=== PATIENT | female | born 1975 | race Caucasian/White ===

== ENCOUNTER 2019-01-01 08:11 | Emergency (ER) | payer MEDICAID, SELFPAY ==
[2019-01-01] MEDS ORDERED: Tetracaine 0.5% OPHTH SOLN/PF 4 ML BOT ONE (08:43)
[2019-01-01] MEDS ORDERED: Fluorescein Opthalmic Strip ONE (08:44)
== END 2019-01-01 09:02 | disposition home or self-care (01) ==
LOC: MADERS 08:11
DX: S09.93XA Unspecified injury of face, initial encounter (principal); F17.210 Nicotine dependence, cigarettes, uncomplicated; W22.8XXA Striking against or struck by other objects, initial encounter
CPT/HCPCS: 99283